=== PATIENT | female | born 1950 | race Caucasian/White ===

== ENCOUNTER 2016-09-06 09:21 | Observation (INO) | payer OTHER ==
[~2016-09-06] VITALS: Ht 165.1 cm; Wt 80.5 kg
--- NOTE | ~2016-09-06 | CON ---
PATIENT'S NAME: JOSE ALEJANDRO ARELLANO [facility] AGE: 65 Y [address] ROOM: [address] [address] LOCATION: [facility] ADMIT DATE: 09/06/2016 Consultation DISCHARGE DATE: FAMILY PHYSICIAN: Georges Segura MD ATTENDING PHYSICIAN: Milo Ceron DATE OF CONSULTATION: 09/06/2016 REFERRING PHYSICIAN: PERRY MORALEZ MD CHIEF COMPLAINT: Left elbow pain and swelling. HISTORY OF PRESENT ILLNESS: Ms. Arellano is a pleasant, 65-year-old female who presents for evaluation of her left elbow. She is right-hand dominant. She reports that she happened to be taking a walk today when she inadvertently tripped and landed onto her left elbow. She was brought to the emergency room for evaluation of her left elbow. X-rays of her left elbow revealed evidence of a comminuted proximal ulna fracture. There was a small bleeding wound and hematoma that formed that was concerning for open fracture. Her tetanus was updated by the emergency room physician, and she was started on Ancef antibiotic. The patient has been provisionally immobilized. Aggravating factors include movement and manipulation of the arm. Alleviating factors include rest, ice, elevation, and immobilization. The patient otherwise reports that she is in good health. She currently denies any constitutional symptoms such as fever, chills, or night sweats. She also denies any dizziness, chest pain, shortness of breath, blurred vision, nausea, vomiting, or diarrhea. REVIEW OF SYSTEMS: A 10-point review of systems was otherwise as mentioned above in the HPI. The rest is negative. PAST MEDICAL HISTORY: Includes hypothyroidism. PAST SURGICAL HISTORY: None. ALLERGIES: NO KNOWN DRUG ALLERGIES. MEDICATIONS: Include Synthroid. PATIENT'S NAME: JOSE ALEJANDRO ARELLANO [facility] AGE: 65 Y [address] ROOM: [address] [address] LOCATION: [facility] ADMIT DATE: 09/06/2016 Consultation DISCHARGE DATE: FAMILY PHYSICIAN: Georges Segura MD ATTENDING PHYSICIAN: Milo Ceron FAMILY HISTORY: Noncontributory. SOCIAL HISTORY: The patient denies any alcohol, tobacco, or illicit drug use. She lives at home with her . PHYSICAL EXAMINATION: VITAL SIGNS: Afebrile. Vital signs stable. GENERAL: The patient is awake, alert, and oriented x3. She is in no acute distress. She is actively conversing with me at the bedside. HEENT: Normocephalic and atraumatic. Extraocular movements are intact. PERRLA. Moist mucous membranes. Oropharyngeal airway is clear. NECK: Supple. Trachea is in the midline. CARDIOVASCULAR: Regular rate and rhythm. ABDOMEN: Soft, nontender, and nondistended. CHEST: Normal and symmetric respirations observed bilaterally. MUSCULOSKELETAL: Left Upper Extremity. Focal examination of the patient's left upper extremity reveals that she is grossly neurologically intact distally. There is tenderness to palpation of the proximal ulna on a hematoma that has formed. There is a small punctate wound where there is bloody drainage present consistent with open fracture. There is scattered ecchymosis of the arm. The patient is unable to move the elbow secondary to pain. Compartments of the arm, forearm, and hand are soft. There is a palpable radial pulse. There is good capillary refill in the digits. The patient is neurovascularly intact distally along the AIN/PIN/median/radial/ulnar nerve distributions. Left Lower Extremity: Focal examination of the patient's left lower extremity reveals that she is grossly neurologically intact distally. There is an abrasion over the anterolateral aspect of the knee that appears superficial. IMAGING: Plain radiographs of the left elbow reveal evidence of a comminuted proximal ulnar fracture with displacement. The elbow is concentrically reduced. There appears to be evidence of an old radial head fracture. Soft tissue swelling is observed. IMPRESSION: 1. Left Gustilo Mustapha type 1 open fracture of the proximal ulna. 2. Hypothyroidism. PLAN: I had a long discussion with the patient in the presence of her regarding the left elbow. She has an open fracture. I am recommending an open irrigation and debridement of the elbow with open reduction and internal PATIENT'S NAME: JOSE ALEJANDRO ARELLANO [facility] AGE: 65 Y [address] ROOM: [id number] [place], [place] [address] LOCATION: [facility] ADMIT DATE: 09/06/2016 Consultation DISCHARGE DATE: FAMILY PHYSICIAN: Georges Segura MD ATTENDING PHYSICIAN: Milo Ceron fixation for definitive orthopedic treatment. I have discussed the risks, benefits, and alternatives to pursuing surgical intervention with the patient in detail. I have discussed the risks of anesthesia, infection, bleeding, and/or injury to neurovascular structures. I explained that there would be a period of at least 2 months of nonweightbearing while the fracture went onto heal. She expressed understanding of this. Informed consent was obtained, and the patient elected to proceed with surgery. We will plan for surgery as soon as this afternoon. She is currently receiving antibiotics, her tetanus is up to date, and we will get the patient admitted and plan for surgery as soon as possible. MD YEYO HARP/edith /[id number] d: 09/06/16 1206 t: 09/06/16 1723, CONSULTATION REPORT
--- NOTE | ~2016-09-06 | HP ---
PATIENT'S NAME: JOSE ALEJANDRO MULLIGAN [facility] AGE: 65 Y [address] ROOM: [place] [address] LOCATION: [facility] ADMIT DATE: 09/06/2016 History & Physical DISCHARGE DATE: FAMILY PHYSICIAN: Georges Segura MD ATTENDING PHYSICIAN: Milo Ceron DATE OF SERVICE: CHIEF COMPLAINT: Left proximal ulna fracture, status post ground level fall. HISTORY OF PRESENTING ILLNESS: This 65-year-old white female with history of hypothyroidism, came to the emergency department this morning after an injury which occurred while she was out for a walk this morning. She states she was walking on level ground when she caught her toe on a piece of uneven concrete. She stumbled forward, falling awkwardly onto her left side. She states she had her left arm flexed when she fell onto the pavement surface. She had pain and swelling immediately. She contacted her and came to the emergency department for definitive evaluation and management. X-rays demonstrated a comminuted left proximal ulna fracture. There was some concern that this may be an open fracture. She relates that she has scraped her left knee, but denies any other injuries associated with the incident. She denies that she was dizzy or lightheaded and did not lose consciousness. She has not had any other recent falls. Currently, she complains of 3 to 4/10 pain which is better after Dilaudid. She denies headache, pain, no neck pain or back pain. She denies chest pain, shortness of breath, or abdominal pain. She exercises regularly and becomes dyspneic only with extreme exertion. She denies abdominal pain or nausea. She has been stooling regularly and voids regularly. She is experiencing a little bit of paresthesia in the 3rd, 4th, and 5th digits of the affected hand, but denies ailyn numbness. No other numbness, tingling, or weakness. ALLERGIES: PENICILLIN. ILLNESSES: Hypothyroidism. CURRENT MEDICATION: Thyroid medicine. FAMILY HISTORY: Negative for heart attack or stroke. PATIENT'S NAME: JOSE ALEJANDRO MULLIGAN [facility] AGE: 65 Y [address] ROOM: [place] [address] LOCATION: [facility] ADMIT DATE: 09/06/2016 History & Physical DISCHARGE DATE: FAMILY PHYSICIAN: Georges Segura MD ATTENDING PHYSICIAN: Milo Ceron SOCIAL HISTORY: She is and lives here in [place]. She does have a 10-pack year history of smoking tobacco, but has been quit for more than 30 years. She denies significant alcohol use. REVIEW OF SYSTEMS: As per HPI. All other organ systems reviewed and are negative. OBJECTIVE: VITAL SIGNS: Temperature 97.7, pulse 94, respirations 18, blood pressure 124/72, O2 saturation 96% on room air. GENERAL: She is anxious, but cooperative, lying in the bed, in mild distress secondary to left arm pain. SKIN: Supple, pink, warm, and dry. She has an abraded area over the left knee anteriorly with a little bit of serous oozing, no ailyn bleeding, and no evidence for deeper skin breech over the left elbow laterally and posteriorly. There is a punctate skin breech with little bit of serosanguineous oozing. No evidence for foreign body or debris. HEENT: Is otherwise, normocephalic. Sclerae nonicteric. Pupils equal, round, and reactive to light and accommodation. Extraocular movements appear intact. Nasal turbinates normal in appearance. Oropharynx clear. Mucous membranes are pink and moist. NECK: Supple. No masses. No thyromegaly. No JVD. CHEST: Wall is symmetrical. HEART: Regular without murmurs. LUNGS: Clear bilaterally. No wheezes or crackles heard. ABDOMEN: Soft, protuberant, nontender. Bowel sounds present. No mass or hepatosplenomegaly. GENITOURINARY: Not done. RECTAL: Not done. EXTREMITIES: Display no clubbing, cyanosis, or edema. Examination of left elbow shows obvious swelling and deformity most notable over the posterior surface, just distal to the olecranon. She is exquisitely tender to the touch and passive range of motion is not tolerated. She has a little bit of ecchymosis underlying the area of the skin breech identified above. NEUROLOGIC: Sensation appears normal. Strength is 0-1/5 in the left upper extremity, limited secondary to pain. Sensation is grossly normal. No other focal deficits. LABORATORY AND X-RAY DATA: A 12-lead EKG is pending. CBC showed a white blood cell count 5.4, hemoglobin is 13.7, hematocrit 41.3, platelets 239. Chemistries reveal BUN and creatinine 9 and 0.7 respectively, sodium and potassium 142 and 3.9, chloride and CO2 are 109 and 25, calcium 8.7, AST and ALT 24 and 25 with a bilirubin of PATIENT'S NAME: JOSE ALEJANDRO MULLIGAN [facility] AGE: 65 Y [address] ROOM: [place] [address] LOCATION: [facility] ADMIT DATE: 09/06/2016 History & Physical DISCHARGE DATE: FAMILY PHYSICIAN: Georges Segura MD ATTENDING PHYSICIAN: Milo Ceron 1.3, glucose was a little elevated at 115, PT and PTT 10.2 and 23 respectively, INR was 0.97. X-ray of the right forearm shows a comminuted fracture of the proximal ulna with some mild impaction, but minimal angulation. There is subtle cortical deformity of the radial head. CT scan of the left elbow pending. ASSESSMENT AND PLAN: 1. Left proximal ulnar fracture, status post mechanical fall, open type. We will admit for observation. We will provide supportive cares including some careful IV fluid hydration therapy and symptomatic relief of pain with IV Dilaudid. She will likely need IV antibiotic therapy and Dr. Lima' evaluation is forthcoming. We will await his evaluation and recommendations, and the potential for operative intervention perhaps later today. We will request a 12-lead EKG for a complete preoperative evaluation. 2. Hyperglycemia, mild probably stressed induced. We will just follow clinically. 3. Hypothyroidism, historically controlled, and clinically stable on thyroid replacement therapy. We will monitor. 4. Left knee abrasion, local wound care. 5. Deep venous thrombosis prophylaxis. We will mobilize her as she is physically able, and if she remains hospitalized postoperatively, follow the venous thromboembolism protocol. MD MARIIA ELLSWORTH/jamel /[id number] D: 2 T: HISTORY & PHYSICAL
--- NOTE | ~2016-09-06 | DS ---
PATIENT'S NAME: VIKI MULLIGAN [facility] AGE: 65 Y [address] ROOM: [place] [address] LOCATION: [facility] ADMIT DATE: 09/06/2016 Discharge Summary DISCHARGE DATE: 09/07/2016 FAMILY PHYSICIAN: Georges Segura MD ATTENDING PHYSICIAN: Milo Ceron PRINCIPAL DIAGNOSES: 1. Left proximal ulnar fracture. 2. Hypothyroidism. 3. Pain control. HISTORY OF PRESENT ILLNESS: Please reference any of the admitting data to the history and physical as dictated by Dr. Milo Ceron. Viki unfortunately suffered a mechanical ground level fall resulting in a left proximal ulnar fracture. She was admitted for pain control and further evaluation and management with Orthopedics consultation. She was found to have a left Gustilo-Mustapha type 1 open fracture of the olecranon. Dr. Lima performed an open reduction and internal fixation of the fracture and then irrigation and debridement of the left elbow and was only 1 cm in length. Postoperatively, she was given Ancef for 3 doses. She is made nonweightbearing of left upper extremity. Sensation, circulation, and sensory returned. Pain control was adequate with Percocet. She was tolerating her diet. She was started on physical and occupational therapy. She tolerated all this well and was felt stable enough to return home on the day of discharge. PRINCIPAL PROCEDURES: By Dr. Stanislav Lima, an open reduction and internal fixation of left comminuted and displaced olecranon fracture with irrigation and debridement of left elbow open fracture with wound measurement of 1 cm in length. PERTINENT LAB FINDINGS: Preoperative labs did not show any remarkable results. Most notably, most recent CBC shows a white blood cell count of 7.4, hemoglobin of 11.1, hematocrit of 34.3, and a platelet count of 212. Renal panel showed a glucose of 115, BUN of 9, and creatinine of 0.7. Sodium 142, potassium of 3.9, chloride of 109, and CO2 of 25. Liver functions were normal. RADIOLOGIC IMAGING: Initial 3-view of the left elbow showed a comminuted, angulated, and displaced fracture involving the proximal ulna. Further evaluation by CT scan confirmed this. DISCHARGE MEDICATIONS: 1. Levothyroxine 88 mcg p.o. every day. PATIENT'S NAME: ISAAK, VIKI [facility] AGE: 65 Y [address] ROOM: [place] [address] LOCATION: [facility] ADMIT DATE: 09/06/2016 Discharge Summary DISCHARGE DATE: 09/07/2016 FAMILY PHYSICIAN: Georges Segura MD ATTENDING PHYSICIAN: Milo Ceron 2. Percocet 5/325 mg 1-2 tablets p.o. every 4-6 hours as needed for pain, prescription written. 3. Valium 5 mg 1 tablet p.o. every 6 hours as needed for muscle spasms, prescription written. 4. Colace 100 mg p.o. twice daily while on narcotics. 5. MiraLax 17 g p.o. daily p.r.n. constipation. DISCHARGE INSTRUCTIONS: The patient will be discharged to home with her . Diet will remain as tolerated. Activity nonweightbearing to the left upper extremity. A splint dressing to remain in place. If there is any drainage or dressing comes off, or if she experiences any fever or changes in her pain status, she should call Dr. Lima' office, otherwise he will see her in 1 week. A followup to be scheduled. She also recommended a followup with Dr. Segura in 1-2 weeks for posthospital care. Total time arranging discharge less than 30 minutes. Thank you for allowing us to participate in the care of this patient while at [facility]. JAYDON GUTIERREZ APRN, APRN FOR MD DAVID ELLSWORTH/edith /[id number] CC: MD Stanislav Wayne MD d: 09/08/16 0101 t: 09/10/16 0931, DISCHARGE SUMMARY
--- NOTE | ~2016-09-06 | ER ---
PATIENT'S NAME: JOSE ALEJANDRO ARELLANO [facility] AGE: 65 Y [address] ROOM: [place] [address] LOCATION: [facility] ADMIT DATE: 09/06/2016 ER/Outpatient Report DISCHARGE DATE: FAMILY PHYSICIAN: Georges Segura MD ATTENDING PHYSICIAN: Milo Ceron CHIEF COMPLAINT: Left elbow pain and fall. HISTORY OF PRESENT ILLNESS: Ms. Arellano notes that just before arrival she was out for a walk when she tripped over a piece of concrete causing her to fall on her right arm. She has a little area of bleeding and significant pain at the elbow. The shoulder appears to be intact, and she denies any problems with the hand other than just referred pain. Nothing has been done prior to arrival other than trying to hold it still. PAST MEDICAL HISTORY: Documented on the record and reviewed by me. SOCIAL HISTORY: Documented on the record and reviewed by me. MEDICATIONS: Documented on the record and reviewed by me. ALLERGIES: DOCUMENTED ON THE RECORD AND REVIEWED BY ME. REVIEW OF SYSTEMS: All systems reviewed and negative except as noted in the HPI. PHYSICAL EXAMINATION: VITAL SIGNS: Blood pressure 132/71, pulse is 71, respiratory rate is 22, and SpO2 is 96% on room air. Pain is rated at 7/10. GENERAL: An age-appropriate female, in obvious pain, but no respiratory distress. Sitting upright on the wheelchair. NEUROLOGIC: Awake and alert. GCS 15. No focal deficits. No asymmetry. The patient appears to be neurovascularly intact throughout the right arm. HEENT: Normocephalic, atraumatic. Eyes are PERRL. Oropharynx is clear. NECK: Supple. Trachea is midline. CHEST: Heart has regular rate and rhythm with no murmurs. LUNGS: Clear to auscultation bilateral. No rhonchi, wheezes, or rales. ABDOMEN: Soft, nontender, nondistended. No rebound or guarding. BACK: Normal to inspection and palpation. PATIENT'S NAME: JOSE ALEJANDRO ARELLANO [facility] AGE: 65 Y [address] ROOM: [place] [address] LOCATION: [facility] ADMIT DATE: 09/06/2016 ER/Outpatient Report DISCHARGE DATE: FAMILY PHYSICIAN: Georges Segura MD ATTENDING PHYSICIAN: Milo Ceron EXTREMITIES: Right upper and bilateral lower extremities grossly unremarkable other than some minor scrapes. The left elbow is notable for significant amounts of pain to the proximal ulna near the olecranon. Unable to range the elbow secondary to pain. The patient is able to make thumbs up, okay sign, thumb to pinky, spread and extend fingers, and appears to have normal strength in the hand, although markedly limited by pain. Sensation to light touch is intact throughout the hand. SKIN: Appears to be intact other than 1 punctate area approximately 3 to 4 cm distal to the olecranon process, overlying what appears to be a hematoma and possible fracture site. LABORATORY DATA AND X-RAYS: Plain films of the left elbow reveal a comminuted proximal ulnar fracture with hematoma. CT scan confirmed with possible radial head fracture of undetermined chronicity. CBC: No appreciable abnormalities. INR is less than 1. CMS is pending. IMPRESSION: 1. Comminuted left proximal ulna fracture, possibly open. 2. Radial head fracture of undetermined chronicity. EMERGENCY DEPARTMENT COURSE: The patient was seen and evaluated as above. With a break in the skin and confirmed fracture, the question was raised for open fracture. Dr. Lima was contacted. He did evaluate the patient and was able to disposition the patient appropriately. He will take the patient in to the hospital under the care of the Hospitalist Service for surgical evaluation. The patient's pain was controlled with Dilaudid. She received Ancef without any interaction. She had Zofran as well, and her tetanus status was updated. MD KELY LOPEZ/edith /[id number] d: 09/07/16 0754 t: 09/11/16 0731, OUTPATIENT REPORT
--- NOTE | ~2016-09-06 | OR ---
PATIENT'S NAME: JOSE ALEJANDRO ARELLANO [facility] AGE: 65 Y [address] ROOM: [place] [address] LOCATION: [facility] ADMIT DATE: 09/06/2016 OR/Procedure Report DISCHARGE DATE: FAMILY PHYSICIAN: Georges Segura MD ATTENDING PHYSICIAN: Milo Ceron SURGEON: Stanislav Lima MD TWILL CUTTER: Tarun Arellano PA-C DATE OF PROCEDURE: 09/06/2016 POSTOPERATIVE DIAGNOSIS: Left Gustilo-Mustapha type 1 open fracture of the olecranon. POSTOPERATIVE DIAGNOSIS: Left Gustilo-Mustapha type 1 open fracture of the olecranon. PROCEDURES PERFORMED: 1. Open reduction and internal fixation of left comminuted and displaced olecranon fracture. 2. Irrigation and debridement of left elbow open fracture. Debridement included skin, subcutaneous tissue, muscle, fascia, and bone. The wound measured 1 cm in length. 3. Use of intraoperative fluoroscopy, less than one hour. ANESTHESIA: General endotracheal anesthesia. FLUIDS: See anesthesia report. ESTIMATED BLOOD LOSS: Minimal. TOURNIQUET: Left proximal arm at 250 mmHg. SPECIMENS: None. COMPLICATIONS: None. DISPOSITION: Stable, in PACU. COUNTS: All counts were correct. IMPLANTS: Include Synthes periarticular olecranon plate and compression and locking screws. INDICATIONS: Ms. Arellano is a pleasant, 65-year-old [id number] female who sustained a fall and the noted fractures above. The risks, benefits, and alternatives to pursuing surgical intervention were discussed with the patient PATIENT'S NAME: JOSE ALEJANDRO ARELLANO [facility] AGE: 65 Y [address] ROOM: [place] [address] LOCATION: [facility] ADMIT DATE: 09/06/2016 OR/Procedure Report DISCHARGE DATE: FAMILY PHYSICIAN: Georges Segura MD ATTENDING PHYSICIAN: Milo Ceron and her in detail. She elected to proceed with surgery. Anesthesia was consulted for their perioperative evaluation of the patient. I marked the left elbow, indicating the correct surgical site. DESCRIPTION OF PROCEDURE: The patient was brought from the holding area to the operative room. A time-out was performed. General endotracheal anesthesia was administered. The left upper extremity was prepped and draped in a sterile fashion. I turned my attention to the left elbow. A time-out was performed. Ancef antibiotic was re-dosed. An Esmarch was used to exsanguinate the limb, and the tourniquet was inflated to 250 mmHg. I identified the 1 cm open fracture wound at the level of the olecranon. I extended the incision both proximally and distally. The skin incision was carried through skin and subcutaneous tissue. I bluntly dissected down to bone. I identified the fracture site. 3 L of normal sterile saline solution was used via pulsatile lavage to irrigate the site out. Debridement was undertaken using a 15 blade knife, rongeur, and a series of curettes. Once the site was copiously irrigated and debrided, I placed 2 K-wires to provisionally reduce the olecranon in place. Once the olecranon was provisionally reduced, I introduced intraoperative fluoroscopy to assess the reduction. I could grossly assess that the olecranon was out to length, though there was a fair amount of comminution Volarly. My incision was dorsal. Therefore, I was limited to my visual dorsal reduction which appeared satisfactory. I then selected a plate of appropriate length. I pinned it both proximally and distally. I confirmed the position of the plate fluoroscopically. I then drilled, measured, and placed 2 compression screws; one proximal, and one distal to the fracture site. I then achieved additional points of fixation proximally by drilling for, measuring, and placing locking screws that were periarticular in nature, but did not enter the joint. I then placed 2 further compression screws distally and one locking screw for additional fixation. I confirmed fluoroscopically the position of the screws, the reduction, and assured that there was no intra-articular penetration of the screws into the elbow joint. Final fluoroscopic images revealed a successful satisfactory open reduction and internal fixation of the olecranon. The elbow was concentrically reduced. The wound was again copiously irrigated with a normal sterile saline solution and closed in layers. Rocío were used to approximate the skin. The tourniquet was let down. Sterile dressings were placed in the form of Xeroform, followed by 4x4, Webril, and Hebert bandage. The arm reperfused after the tourniquet came down. The patient was then placed into a posterior slab PATIENT'S NAME: JOSE ALEJANDRO ARELLANO [facility] AGE: 65 Y [address] ROOM: [place] [address] LOCATION: [facility] ADMIT DATE: 09/06/2016 OR/Procedure Report DISCHARGE DATE: FAMILY PHYSICIAN: Georges Segura MD ATTENDING PHYSICIAN: Milo Ceron splint, and a sling was placed around her neck. The patient was transferred from the operating room table onto the stretcher and extubated. She was brought to the recovery room in stable condition. There were no intraoperative complications noted. Of note, my PA, Tarun Arellano PA-C, played an integral role in the intraoperative care of this patient. This included preoperative positioning; intraoperative expert retraction; and closing, dressing, and splinting functions. IMPRESSION: The patient is status post the noted procedures above. PLAN: The patient will be nonweightbearing on the left upper extremity. She will be encouraged to rest, ice, and elevate the extremity going forward. She will be admitted to the hospital. Antibiotics will be administered per open fracture protocol. This will be in the form of Ancef. Pain control will be in the form of Percocet and IV morphine as needed for pain. DVT prophylaxis will be mechanical in nature. The hospitalist will continue to manage the patient's concomitant medical comorbidities. I will continue to monitor the patient closely in the postoperative period. MD YEYO HARP/edith /[id number] d: 09/06/16 1453 t: 09/06/16 1728, OPERATIVE SUMMARY
[2016-09-06 10:22] LABS: BASOPHIL % 0.6 %; EOSINOPHIL # 0.1 K/uL (0.0-0.5); EOSINOPHIL % 1.5 %; HEMATOCRIT 41.3 % (33.0-46.0); HEMOGLOBIN 13.7 g/dL (10.0-15.0); IMMATURE GRANULOCYTE % 0.4 %; LYMPHOCYTE # 2.1 K/uL (0.8-4.0); LYMPHOCYTE % 38.7 %; MCH 29.2 pg (27.0-34.0); MCHC 33.2 gm/dL (32.0-36.5); MCV 88.1 fl (83.0-98.0); MONOCYTE # 0.4 K/uL (0.0-1.0); MONOCYTE % 7.6 %; MPV 9.4 fl (9.4-12.4); NEUTROPHIL # (ANC) 2.8 K/uL (1.8-7.8); NEUTROPHIL % 51.2 %; NRBC % 0 /100WBC (0-0.00); PLATELET COUNT 239 K/uL (150-450); RBC 4.69 M/uL (3.50-5.50); RDW-CV 13.4 % (11.9-14.6); WBC 5.4 K/uL (4.0-11.0)
[2016-09-06 10:27] LABS: INR - (THERAPEUTIC) 0.97 (0.92-1.07); PROTIME 10.2 SECONDS (9.8-11.4); PTT 23 SECONDS (25-32)
[2016-09-06 10:37] LABS: ALBUMIN 3.7 gm/dL (3.5-5.0); ALK PHOS 64 IU/L (33-138); ALT 25 IU/L (12-78); ANION GAP 11.9 (10.0-19.0); AST 24 IU/L (10-40); BLOOD UREA NITROGEN 9 mg/dL (6-24); CALCIUM 8.7 mg/dL (8.5-10.5); CHLORIDE 109 mMol/L (96-110); CO2 25 mMol/L (22-32); CREATININE 0.7 mg/dL (0.5-1.1); POTASSIUM 3.9 mMol/L (3.7-5.1); SODIUM 142 mMol/L (135-145); TOTAL BILIRUBIN 1.3 mg/dL (0.0-1.5); TOTAL PROTEIN 7.4 g/dL (6.0-8.4)
[2016-09-06] MEDS ORDERED: LEVOTHROID (SY88 MCG PO (11:40)
[2016-09-06] MEDS ORDERED: ADVIL200 MG PO (11:41)
[2016-09-07 04:14] LABS: HEMATOCRIT 34.3 % (33.0-46.0); HEMOGLOBIN 11.1 g/dL (10.0-15.0); IMMATURE GRANULOCYTE % 0.4 %; LYMPHOCYTE # 1.3 K/uL (0.8-4.0); LYMPHOCYTE % 17.5 %; MCH 28.8 pg (27.0-34.0); MCHC 32.4 gm/dL (32.0-36.5); MCV 88.9 fl (83.0-98.0); MONOCYTE # 0.5 K/uL (0.0-1.0); MONOCYTE % 7.2 %; MPV 9.3 fl (9.4-12.4); NEUTROPHIL # (ANC) 5.5 K/uL (1.8-7.8); NEUTROPHIL % 74.9 %; NRBC % 0 /100WBC (0-0.00); PLATELET COUNT 212 K/uL (150-450); RBC 3.86 M/uL (3.50-5.50); RDW-CV 13.5 % (11.9-14.6); WBC 7.4 K/uL (4.0-11.0)
--- NOTE | 2016-09-07 07:25 | NUR ---
Significant Event: VSS. sling to left are. csm wnl. percocet given at 2100 Follow up:
[2016-09-07] MEDS ORDERED: PERCOCET 5-3251 EACH PO (12:01)
[2016-09-07] MEDS ORDERED: VALIUM5 MG PO (12:02)
[2016-09-07] MEDS ORDERED: COLACE100 MG PO (15:38)
[2016-09-07] MEDS ORDERED: MIRALAX17 GM PO (15:39)
== END 2016-09-07 15:55 | disposition disaster alternative care site (69) ==
LOC: GACC 09:21 → GOBS 10:38
PROVIDERS: Emergency Medicine; ADMIT Family Medicine
PROC: 0PSL04Z Reposition Left Ulna with Internal Fixation Device, Open Approach (ICD-10-PCS; principal; 2016-09-06)
DX: S52.022B Displaced fracture of olecranon process without intraarticular extension of left ulna, initial encounter for open fracture type I or II (principal); E03.9 Hypothyroidism, unspecified; R73.9 Hyperglycemia, unspecified; S80.212A Abrasion, left knee, initial encounter; Z87.891 Personal history of nicotine dependence; W18.39XA Other fall on same level, initial encounter; Z88.0 Allergy status to penicillin; Z79.899 Other long term (current) drug therapy; Y93.01 Activity, walking, marching and hiking
CPT/HCPCS: C1713; J0690; J1100; J1170; J2175; J2250; J2405; J2550; J7030; J7050